=== PATIENT | male | born 1990 | race African-American/Black ===

== ENCOUNTER → 2025-05-25 | Outpatient (CLI) | payer OTHER ==
--- NOTE | 2025-05-26 02:49 | HMCIMG ---
EXAM: CT examination of the Brain without contrast. CLINICAL HISTORY: Headache. TECHNIQUE: Thin collimated axial CT images of the brain were obtained with sagittal and coronal reformatted images also submitted. CT scan done according to ALARA (As Low as Reasonably Achievable). CONTRAST USED: None. COMPARISON: None provided. FINDINGS: No acute intracranial abnormality is present. No acute cortical infarction, hemorrhage, mass or mass effect. No hydrocephalus or abnormal extra-axial fluid collections. The posterior fossa is unremarkable. The skull base and calvarium are intact. The included portions of the paranasal sinuses are clear. Sclerosis and paucity of the right mastoid air cells. Unremarkable left mastoid air cells. IMPRESSION: No acute intracranial abnormality is present. 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 Recommend clinical correlation. /Elaine
== END | disposition home or self-care (01) ==
LOC: EEVIPCON 14:15 → RAH 14:15
PROVIDERS: ATTEND Family Medicine
DX: R51.9 Headache, unspecified (principal)
CPT/HCPCS: 70450